=== PATIENT | male | born 1965 | race Caucasian/White ===

== ENCOUNTER 2024-12-22 04:10 | Inpatient (IN) | payer BC ==
[2024-12-22] MEDS: Ondansetron 4 MG/2 ML SDV IVPUSH ONE (05:21)
[2024-12-22] MEDS: Sodium Chloride 0.9% 1,000 ML IV ONE (05:21)
[2024-12-22] MEDS: Morphine 4 MG/ML Syringe IVPUSH ONE (05:22)
[2024-12-22] MEDS: Sodium Chloride 0.9% 10 ML Syringe FLUSH PRN (05:24)
[2024-12-22 05:29] LABS: A/G RATIO 1.1 (1-2); ALBUMIN 4.2 g/dl (3.4-5.0); ANION GAP 15.9 (5-15); BILIRUBIN TOTAL 0.8 mg/dL (0.2-1.0); BUN/CREATININE RATIO 12.5 (14-18); CALCIUM 9.2 mg/dL (8.5-10.1); CREATININE 1.2 mg/dL (0.7-1.3); EST CRCL DRUG DOSING (CG) 59.81 mL/min; POTASSIUM,K 3.9 mEq/L (3.5-5.1); PROTEIN TOTAL,TP 7.9 g/dl (6.4-8.2)
[2024-12-22 05:31] LABS: BASOPHILS ABSOLUTE AUTO 0.1 K/mm3 (0.0-0.2); BASOPHILS PERCENT AUTO 0.3 % (0.0-1.0); HEMATOCRIT 45.2 % (42.0-52.0); IMMATURE GRAN ABSOLUTE AUTO 0.08 K/mm3 (0.00-0.05); IMMATURE GRAN PERCENT AUTO 0.5 % (0.0-0.4); LYMPHOCYTES ABSOLUTE AUTO 0.6 K/mm3 (1.0-4.8); LYMPHOCYTES PERCENT AUTO 3.7 % (24.0-44.0); MEAN CORPUSCULAR HEMOGLOBIN 31.7 pg (28.0-32.0); MEAN CORPUSCULAR HGB CONC 35.4 g/dl (32.0-36.0); MEAN CORPUSCULAR VOLUME 89.5 fl (83.0-99.0); MONOCYTES ABSOLUTE AUTO 0.5 K/mm3 (0.0-0.8); MONOCYTES PERCENT AUTO 3.3 % (0.0-8.0); NEUTROPHILS PERCENT AUTO 92.2 % (41.0-71.0); PLATELET COUNT,PLT 325 K/mm3 (150-400); RED BLOOD CELL COUNT 5.05 M/mm3 (4.52-5.90); WHITE BLOOD CELL COUNT,WBC 15.14 K/mm3 (3.9-11.3)
[2024-12-22] MEDS: Iopamidol 612 MG/ML 100 ML Bottle IVPUSH ONE (05:53)
[2024-12-22 06:12] LABS: SLIDE REVIEW ABNORMAL SMEAR
[2024-12-22 07:23] LABS: APPEARANCE,URINE CLEAR (Clear); BILIRUBIN,URINE NEGATIVE (Negative); COLOR,URINE YELLOW (Yellow); GLUCOSE,URINE NEGATIVE (Negative); KETONES,URINE NEGATIVE (Negative); LEUKOCYTE ESTERASE,URINE NEGATIVE (Negative); NITRITE,URINE NEGATIVE (Negative); OCCULT BLOOD,URINE TRACE-INTACT (Negative); PROTEIN,URINE TRACE (Negative); UROBILINOGEN,URINE 0.2 (0.2-1.0)
[2024-12-22 07:38] LABS: BACTERIA,URINE RARE /hpf (FEW); MUCUS,URINE RARE /hpf (FEW); SQUAMOUS EPITHELIAL CELLS,UR 0-5 /hpf (0-5); WBC,URINE 0-5 /hpf (0-5)
[2024-12-22] MEDS: Lactated Ringers 1,000 ML IV SCH (08:46)
[2024-12-22] MEDS: Enoxaparin 40 MG/0.4 ML Syringe SUBCUT SCH (08:47)
[2024-12-22] MEDS ORDERED: Ibuprofen 400 MG Tab PO PRN (09:38)
[2024-12-22] MEDS ORDERED: Ketorolac 30 MG/ML SDV IVPUSH PRN (09:39)
[2024-12-22] MEDS: Acetaminophen 325 MG Tab PO PRN (10:48)
[2024-12-22] MEDS: Diatrizoate Meglumine/Diatrizoate Sodium 37% 120 ML Bottle PO ONE (12:08)
[2024-12-23 10:44] VITALS: BP 133/74; PULSE 70
== END 2024-12-23 10:13 | disposition home or self-care (01) | DRG 247 ==
LOC: JD.ED 04:10 → JD.MS 07:29
PROVIDERS: ADMIT Surgery; ATTEND Surgery
DX: K56.690 Other partial intestinal obstruction (principal); K21.9 Gastro-esophageal reflux disease without esophagitis; Z90.49 Acquired absence of other specified parts of digestive tract; Z79.899 Other long term (current) drug therapy
CPT/HCPCS: 36415; 43752; 74018; 74018-26; 74177; 74177-26; 80053; 81001; 82947; 83605; 83690; 85025; 93005; 96361; 96374; 96375; 99285-25; A9270-GY; J1650; J2270; J2405; J7030; J7120; Q9967